=== PATIENT | male | born 1930 | race African-American/Black ===

== ENCOUNTER → 2017-08-20 | Outpatient (CLI) | payer MEDICARE, OTHER ==
[~2017-08-20] VITALS: Ht 160 cm; Wt 69.0 kg
[~2017-08-20] MED LIST: AMLO-511 PO; ASPI-1182 PO; ASPI325T52 PO; ASPI81 PO; ATOR10TA69 PO; AZIL1TAB3 PO; CARV6.2534 PO; CLOP75 PO; DOCU250C16 PO; FAMO20 PO; FAMO40TA7 PO; FERR-89 PO; FEXO-58 PO; FEXO1TAB5 PO; FLUT PO; GABA-531 PO; HYDR25TA PO; IBUP-2070 PO; LISI-662 PO; LUBI24CA2 PO; ROSU10 PO; ROSU5TAB PO; SOLI5 PO; TAMS0.4C32 PO; VALS1TAB79 PO; VITAD1000 PO
[2017-08-20 11:30] VITALS: BP 132/52
== END | disposition home or self-care (01) ==
LOC: SRCNTR 10:53
PROVIDERS: ATTEND Internal Medicine Clinical Cardiac Electrophysiology
DX: Z45.02 Encounter for adjustment and management of automatic implantable cardiac defibrillator (principal); E11.9 Type 2 diabetes mellitus without complications; I11.0 Hypertensive heart disease with heart failure; I50.9 Heart failure, unspecified; E78.5 Hyperlipidemia, unspecified; Z96.0 Presence of urogenital implants; Z79.82 Long term (current) use of aspirin; Z88.0 Allergy status to penicillin; Z95.810 Presence of automatic (implantable) cardiac defibrillator
CPT/HCPCS: G0463

== ENCOUNTER → 2017-09-03 | Outpatient (CLI) | payer MEDICARE, OTHER ==
[~2017-09-03] VITALS: Ht 170.2 cm; Wt 68.0 kg
[2017-09-03 11:01] VITALS: BP 129/44
== END | disposition home or self-care (01) ==
LOC: SRCNTR 10:50
PROVIDERS: ATTEND Internal Medicine Clinical Cardiac Electrophysiology
DX: I11.0 Hypertensive heart disease with heart failure (principal); I50.9 Heart failure, unspecified; E11.9 Type 2 diabetes mellitus without complications; Z79.82 Long term (current) use of aspirin; E78.5 Hyperlipidemia, unspecified; Z88.0 Allergy status to penicillin; Z96.0 Presence of urogenital implants; Z95.810 Presence of automatic (implantable) cardiac defibrillator
CPT/HCPCS: G0463

== ENCOUNTER 2017-09-09 11:17 | Day surgery (SDC) | payer MEDICARE, OTHER ==
[~2017-09-09] VITALS: Ht 163.8 cm; Wt 65.5 kg
[~2017-09-09 11:17] MED LIST changes: -ASPI-1182 PO; -ASPI325T52 PO; -ATOR10TA69 PO; -CARV6.2534 PO; -CLOP75 PO; -DOCU250C16 PO; -FAMO20 PO; -FEXO-58 PO; -FEXO1TAB5 PO; -FLUT PO; -HYDR25TA PO; -LISI-662 PO; -LUBI24CA2 PO; -ROSU5TAB PO; +SODIUM CHLORIDE 0.9% 0 ML IV ONE; +SODIUM CHLORIDE 0.9% 1,000 ML IV ONE; -SOLI5 PO; -VALS1TAB79 PO; -VITAD1000 PO
[2017-09-09] MEDS ORDERED: TAMS0.4C32 PO (11:38)
[2017-09-09] MEDS ORDERED: FAMO20 PO (11:38)
[2017-09-09] MEDS ORDERED: GABA-531 PO ×2 (11:38)
[2017-09-09] MEDS ORDERED: ASPI-1182 PO (11:38)
[2017-09-09] MEDS ORDERED: 0.9% SODIUM CHLORIDE 10 ML VIAL IVP ONE (12:00)
[2017-09-09] MEDS ORDERED: EPHEDrine SULFATE 50 MG/ML VIAL IM ONE (12:00)
[2017-09-09] MEDS ORDERED: MIDAZOLAM HCL 2 MG/2 ML VIAL IVP ONE (12:00)
[2017-09-09] MEDS ORDERED: FentaNYL CITRATE-PF 100 MCG/2 ML VIAL IVP ONE (12:00)
[2017-09-09] MEDS ORDERED: PHENYLEPHRINE HCL 10 MG/ML VIAL IVP ONE (12:00)
[2017-09-09] MEDS ORDERED: LABETALOL HCL 5 MG/ML 20 ML VIAL IVP ONE (12:00)
[2017-09-09 12:12] LABS: BASOPHILS % (AUTO) 0.7 % (0.0-2.0); EOSINOPHILS % (AUTO) 1.6 % (1.0-6.0); HEMATOCRIT 34.8 % (41-53); HEMOGLOBIN 11.8 g/dL (13.5-17.5); LYMPHOCYTES % (AUTO) 29.9 % (22.0-44.0); MEAN CORPUSCULAR HEMOGLOBIN 30.9 pg (26.0-34.0); MEAN CORPUSCULAR HGB CONC 33.9 G/dL (31.0-37.0); MEAN CORPUSCULAR VOLUME 91 fL (80-100); MONOCYTES # (AUTO) 0.3 K/uL (0.1-1.0); MONOCYTES % (AUTO) 5.2 % (2.0-9.0); NEUTROPHILS # (AUTO) 4.2 K/uL (1.8-7.7); NEUTROPHILS % (AUTO) 62.6 % (40.0-70.0); PLATELET COUNT (AUTO) 181 K/uL (150-450); RED BLOOD CELL COUNT(AUTO) 3.82 MIL/uL (4.50-5.90); RED CELL DISTRIBUTION WIDTH 14.1 % (11.5-14.5)
[2017-09-09 12:22] LABS: PROTHROMBIN TIME 10.6 SEC (9.4-11.6)
[2017-09-09 12:43] LABS: CALCIUM, TOTAL 10.1 mg/dL (8.8-10.5); CREATININE 1.62 mg/dL (0.60-1.30); MAGNESIUM 2.1 mg/dL (1.80-2.40); POTASSIUM 3.8 mmol/L (3.5-5.1)
[2017-09-09] MEDS ORDERED: VANCOMYCIN HCL 1 GM/VIAL ONE (13:07)
[2017-09-09] MEDS ORDERED: SODIUM BICARBONATE 50 MEQ/50 ML VIAL ONE (13:08)
[2017-09-09] MEDS ORDERED: 0.9% SODIUM CHLORIDE 10 ML SYRINGE IVP ONE (13:08)
[2017-09-09] MEDS ORDERED: LIDOCAINE HCL/PF 1% 30 ML VIAL ONE (13:08)
[2017-09-09] MEDS ORDERED: IOHEXOL 300 MG/ML 50 ML VIAL ONE (13:08)
[2017-09-09 13:13] VITALS: BP 201/90
[2017-09-09] MEDS ORDERED: VANCOMYCIN HCL 0.5 GM in DEXTROSE 5%-WATER 100 ML IV ONE (13:13)
[2017-09-09] MEDS ORDERED: BUPIVACAINE LIPOSOME/PF 1.3%-13.3MG/ML SUSPENSION 10 ML VIAL INJ ONE (13:15)
[2017-09-09] MEDS ORDERED: LIDOCAINE 1% 30 ML/SOD BICARB 8.4% 4 ML SQ ONE (13:25)
[2017-09-09] MEDS ORDERED: VANCOMYCIN HCL 1 GM/VIAL IRRIG ONE (13:34)
[2017-09-09 13:57] VITALS: BP 155/73
== END 2017-09-09 18:50 | disposition home or self-care (01) ==
LOC: SDS 11:17
PROVIDERS: ATTEND Internal Medicine Clinical Cardiac Electrophysiology
DX: Z45.02 Encounter for adjustment and management of automatic implantable cardiac defibrillator (principal); I11.0 Hypertensive heart disease with heart failure; I50.9 Heart failure, unspecified; G89.29 Other chronic pain; K21.9 Gastro-esophageal reflux disease without esophagitis; E78.00 Pure hypercholesterolemia, unspecified; E11.9 Type 2 diabetes mellitus without complications; F15.90 Other stimulant use, unspecified, uncomplicated; Z87.891 Personal history of nicotine dependence; Z79.82 Long term (current) use of aspirin; Z85.46 Personal history of malignant neoplasm of prostate; Z88.0 Allergy status to penicillin; Z86.73 Personal history of transient ischemic attack (TIA), and cerebral infarction without residual deficits
CPT/HCPCS: 33263; 36415; 80048; 83735; 85025; 85610; 85730; 88300; 93005; C2621; J0690; J2250; J2370; J3010; J3370; J3490 ×4; J7030; 33240; J7060; Q9967

== ENCOUNTER → 2017-09-17 | Outpatient (CLI) | payer MEDICARE ==
[~2017-09-17] VITALS: Ht 160 cm; Wt 68.0 kg
[~2017-09-17] MED LIST changes: +ASPI-1182 PO; -ASPI81 PO; +ATOR10TA69 PO; +FAMO20 PO; -FAMO40TA7 PO; +FEXO-58 PO; +FEXO1TAB5 PO; +FLUT PO; +HYDR25TA PO; +LISI-662 PO; +LUBI24CA2 PO; -SODIUM CHLORIDE 0.9% 0 ML IV ONE; -SODIUM CHLORIDE 0.9% 1,000 ML IV ONE; +SOLI5 PO; +VITAD1000 PO
[2017-09-17 11:07] VITALS: BP 128/38
== END | disposition home or self-care (01) ==
LOC: SRCNTR 11:01
PROVIDERS: ATTEND Internal Medicine Clinical Cardiac Electrophysiology
DX: I11.0 Hypertensive heart disease with heart failure (principal); I50.9 Heart failure, unspecified; E78.5 Hyperlipidemia, unspecified; E11.9 Type 2 diabetes mellitus without complications; Z96.0 Presence of urogenital implants; Z95.810 Presence of automatic (implantable) cardiac defibrillator
CPT/HCPCS: 93288; G0463

== ENCOUNTER → 2017-09-24 | Outpatient (CLI) | payer MEDICARE ==
[~2017-09-24] VITALS: Ht 160 cm; Wt 65.0 kg
[2017-09-24 11:54] VITALS: BP 112/45
== END | disposition home or self-care (01) ==
LOC: SRCNTR 11:41
PROVIDERS: ATTEND Internal Medicine Clinical Cardiac Electrophysiology
DX: Z45.018 Encounter for adjustment and management of other part of cardiac pacemaker (principal); I48.91 Unspecified atrial fibrillation
CPT/HCPCS: 93288; G0463

== ENCOUNTER 2017-09-27 14:11 | Inpatient (IN) | payer MEDICARE ==
[~2017-09-27] VITALS: Ht 170.2 cm; Wt 63.5 kg
[~2017-09-27 14:11] MED LIST changes: -ATOR10TA69 PO; -FEXO-58 PO; -FEXO1TAB5 PO; -FLUT PO; -HYDR25TA PO; -LISI-662 PO; -LUBI24CA2 PO; -SOLI5 PO; -VITAD1000 PO
[2017-09-27 14:32] LABS: GLUCOSE,POINT OF CARE 90 MG/DL (70-110)
[2017-09-27] MEDS ORDERED: FEXO-58 PO (14:58)
[2017-09-27] MEDS ORDERED: SOLI5 PO (14:58)
[2017-09-27] MEDS ORDERED: LUBI24CA2 PO (14:58)
[2017-09-27] MEDS ORDERED: HYDR25TA PO (14:58)
[2017-09-27] MEDS ORDERED: VITAD1000 PO (14:58)
[2017-09-27] MEDS ORDERED: FLUT PO (14:58)
[2017-09-27] MEDS ORDERED: LISI-662 PO (14:58)
[2017-09-27] MEDS ORDERED: FEXO1TAB5 PO (15:38)
[2017-09-27] MEDS ORDERED: ATOR10TA69 PO (15:38)
[2017-09-27 15:47] LABS: BASOPHILS % (AUTO) 0.1 % (0.0-2.0); EOSINOPHILS % (AUTO) 0 % (1.0-6.0); HEMOGLOBIN 10.2 g/dL (13.5-17.5); LYMPHOCYTES # (AUTO) 1.3 K/uL (1.0-4.8); LYMPHOCYTES % (AUTO) 13.6 % (22.0-44.0); MEAN CORPUSCULAR HEMOGLOBIN 30.7 pg (26.0-34.0); MEAN CORPUSCULAR HGB CONC 34.1 G/dL (31.0-37.0); MEAN CORPUSCULAR VOLUME 90 fL (80-100); MONOCYTES # (AUTO) 0.3 K/uL (0.1-1.0); MONOCYTES % (AUTO) 3.6 % (2.0-9.0); NEUTROPHILS # (AUTO) 7.7 K/uL (1.8-7.7); NEUTROPHILS % (AUTO) 82.7 % (40.0-70.0); PLATELET COUNT (AUTO) 178 K/uL (150-450); RED BLOOD CELL COUNT(AUTO) 3.34 MIL/uL (4.50-5.90); RED CELL DISTRIBUTION WIDTH 13.9 % (11.5-14.5); WHITE BLOOD COUNT (AUTO) 9.3 K/uL (4.5-11.0)
[2017-09-27 16:06] LABS: PROTHROMBIN TIME 10.9 SEC (9.4-11.6)
[2017-09-27 16:14] LABS: APPEARANCE,URINE CLOUDY (CLEAR); GLUCOSE, URINE (UA) NEGATIVE (NEGATIVE); KETONES,URINE NEGATIVE (NEGATIVE); LEUKOCYTE ESTERASE ,URINE MODERATE (NEGATIVE); OCCULT BLOOD,URINE LARGE (NEGATIVE); PROTEIN,URINE SEE CONFIRM (NEGATIVE)
[2017-09-27 16:30] LABS: ADD UA MICROSCOPIC YES
[2017-09-27 16:31] LABS: SULFOSALICYLIC ACID,URINE 3+ (Negative)
[2017-09-27 16:36] LABS: ALANINE AMINOTRANSFERASE 13 U/L (12-78); ALBUMIN 3.7 g/dL (3.4-5.0); ANION GAP 13 mmol/L (8-16); ASPARTATE AMINOTRANSFERASE 19 U/L (15-37); BILIRUBIN,TOTAL 0.5 mg/dL (0.1-1.0); CALCIUM, TOTAL 9.5 mg/dL (8.8-10.5); CARBON DIOXIDE 25 mmol/L (22-29); CHLORIDE 96 mmol/L (98-107); CREATINE KINASE MB 1.8 ng/mL (0-5); CREATINE KINASE, TOTAL 177 U/L (39-308); CREATININE 3.51 mg/dL (0.60-1.30); GLOMERULAR FILTR. RATE CALC 20 mL/min (>60); SODIUM SERUM 134 mmol/L (136-145); TOTAL PROTEIN, SERUM 8.5 g/dL (6.4-8.2); UREA NITROGEN, BLOOD 48 mg/dL (7-18)
[2017-09-27 16:40] LABS: POTASSIUM 2.8 mmol/L (3.5-5.1)
[2017-09-27] MEDS ORDERED: LEVOFLOXACIN 500 MG/D5% WATER 100 ML IV ONE (16:45)
[2017-09-27] MEDS ORDERED: POTASSIUM CHLORIDE 10% 40 MEQ/30 ML LIQUID UDCUP PO ONE (16:45)
[2017-09-27 16:54] LABS: B-TYPE NATRIURETIC PEPTIDE 91 pg/mL (0-100)
[2017-09-27] MEDS ORDERED: 0.9% SODIUM CHLORIDE 10 ML SYRINGE IVP PRN (20:00)
[2017-09-27] MEDS ORDERED: SODIUM CHLORIDE 0.9% 1,000 ML IV ONE ×2 (20:00→22:30)
[2017-09-27] MEDS ORDERED: ACETAMINOPHEN 325 MG TABLET PO PRN (20:00)
[2017-09-27 20:45] VITALS: BP 152/84
[2017-09-27] MEDS ORDERED: *CLINICAL-LEVOFLOXACIN IVPB DOSING CLINICAL ONE ×2 (22:30)
[2017-09-27] MEDS ORDERED: MAGNESIUM HYDROXIDE SUSPENSION 30 ML UDCUP PO PRN (22:30)
[2017-09-27] MEDS ORDERED: ONDANSETRON HCL 4 MG/2 ML VIAL IVP PRN (22:30)
[2017-09-27] MEDS ORDERED: HydrALAZINE HCL 20 MG/ML VIAL IVP PRN (22:30)
[2017-09-27] MEDS ORDERED: HYDROCODONE/ACETAMINOPHEN 5-325 MG TABLET PO PRN (22:30)
[2017-09-27] MEDS ORDERED: ZOLPIDEM TARTRATE 5 MG TABLET PO PRN (22:30)
[2017-09-27] MEDS ORDERED: MORPHINE SULFATE 2 MG/ML SYRINGE IVP PRN (22:30)
[2017-09-27] MEDS ORDERED: BISACODYL 10 MG RECTAL RECTAL SUPPOSITORY PR PRN (22:30)
[2017-09-27] MEDS ORDERED: -PHARMACY VACCINE NOTE- MISC ONE ×2 (22:45)
[2017-09-27] MEDS ORDERED: PNEUMOCOCCAL VACCINE POLYVALENT 0.5 ML VIAL [PPSV23] IM ONE (22:45)
[2017-09-27] MEDS: HEPARIN SODIUM,PORCINE 5,000 UNITS/ML VIAL SQ SCH (23:37)
[2017-09-27 23:58] VITALS: BP 109/61
[2017-09-28 04:42] VITALS: BP 138/59
[2017-09-28 07:10] LABS: ALBUMIN 3.1 g/dL (3.4-5.0); BILIRUBIN,TOTAL 0.5 mg/dL (0.1-1.0); CREATININE 2.32 mg/dL (0.60-1.30); POTASSIUM 3.1 mmol/L (3.5-5.1); THYROID STIMULATING HORMONE 1.77 uIU/mL (0.36-3.74); TOTAL PROTEIN, SERUM 7.3 g/dL (6.4-8.2)
[2017-09-28 07:28] VITALS: BP 130/60
[2017-09-28 08:07] LABS: BASOPHILS # (AUTO) 0.04 K/uL (0.00-0.20); BASOPHILS % (AUTO) 0.6 % (0.0-2.0); EOSINOPHILS # (AUTO) 0.04 K/uL (0.00-0.70); EOSINOPHILS % (AUTO) 0.58 % (1.0-6.0); LYMPHOCYTES # (AUTO) 1.7 K/uL (1.0-4.8); MEAN CORPUSCULAR HEMOGLOBIN 30.5 pg (26.0-34.0); MEAN CORPUSCULAR HGB CONC 33.4 G/dL (31.0-37.0); MEAN CORPUSCULAR VOLUME 91 fL (80-100); MONOCYTES # (AUTO) 0.5 K/uL (0.1-1.0); MONOCYTES % (AUTO) 7.7 % (2.0-9.0); NEUTROPHILS # (AUTO) 4.6 K/uL (1.8-7.7); NEUTROPHILS % (AUTO) 66.1 % (40.0-70.0); PLATELET COUNT (AUTO) 161 K/uL (150-450); RED BLOOD CELL COUNT(AUTO) 3.29 MIL/uL (4.50-5.90); RED CELL DISTRIBUTION WIDTH 13.9 % (11.5-14.5); WHITE BLOOD COUNT (AUTO) 6.9 K/uL (4.5-11.0)
[2017-09-28] MEDS: ROSUVASTATIN CALCIUM 10 MG TABLET PO SCH (08:31)
[2017-09-28] MEDS: LUBIPROSTONE 24 MCG CAPSULE PO SCH ×2 (08:31→20:41)
[2017-09-28] MEDS: SOLIFENACIN SUCCINATE 5 MG TABLET PO SCH (08:31)
[2017-09-28] MEDS: FERROUS SULFATE 325 MG EC TABLET PO SCH ×2 (08:32→18:17)
[2017-09-28] MEDS: DOCUSATE SODIUM 100 MG CAPSULE PO SCH ×2 (08:32→20:41)
[2017-09-28] MEDS: FEXOFENADINE HCL 60 MG TABLET PO SCH (08:32)
[2017-09-28] MEDS: TAMSULOSIN HCL 0.4 MG CAPSULE PO SCH (08:32)
[2017-09-28] MEDS: GABAPENTIN 300 MG CAPSULE PO SCH ×2 (08:33→20:41)
[2017-09-28] MEDS: AmLODIPine BESYLATE 5 MG TABLET PO SCH (08:33)
[2017-09-28] MEDS: ASPIRIN 81 MG EC TABLET PO SCH (08:33)
[2017-09-28] MEDS: PANTOPRAZOLE SODIUM 40 MG DR TABLET PO SCH (08:33)
[2017-09-28] MEDS: CHOLECALCIFEROL (VIT D3) 1,000 UNITS TABLET PO SCH (08:34)
[2017-09-28] MEDS: HEPARIN SODIUM,PORCINE 5,000 UNITS/ML VIAL SQ SCH ×3 (08:34→23:47)
[2017-09-28] MEDS: LEVOFLOXACIN 250 MG/D5% WATER 50 ML IV SCH (09:16)
[2017-09-28] MEDS ORDERED: POTASSIUM CHLORIDE 10% 40 MEQ/30 ML LIQUID UDCUP PO ONE (11:15)
[2017-09-28 11:29] VITALS: BP 113/41
[2017-09-28] MEDS: POTASSIUM CHLORIDE 10 MEQ in SODIUM CHLORIDE 0.9% 1,000 ML IV SCH (12:17)
[2017-09-28 16:13] VITALS: BP 94/50
[2017-09-28] MEDS: FLUTAMIDE 125 MG PO SCH ×2 (18:22→23:14)
[2017-09-28 19:37] VITALS: BP 98/50
[2017-09-28 23:52] VITALS: BP 111/57
[2017-09-29] MEDS: POTASSIUM CHLORIDE 10 MEQ in SODIUM CHLORIDE 0.9% 1,000 ML IV SCH (04:52)
[2017-09-29 05:03] VITALS: BP 123/60
[2017-09-29 06:15] LABS: HEMATOCRIT 27.7 % (41-53); HEMOGLOBIN 9.5 g/dL (13.5-17.5); LYMPHOCYTES # (AUTO) 1.9 K/uL (1.0-4.8); MEAN CORPUSCULAR HEMOGLOBIN 31.4 pg (26.0-34.0); MEAN CORPUSCULAR HGB CONC 34.3 G/dL (31.0-37.0); MEAN CORPUSCULAR VOLUME 92 fL (80-100); MONOCYTES # (AUTO) 0.4 K/uL (0.1-1.0); MONOCYTES % (AUTO) 4.9 % (2.0-9.0); NEUTROPHILS # (AUTO) 6.3 K/uL (1.8-7.7); NEUTROPHILS % (AUTO) 72.1 % (40.0-70.0); PLATELET COUNT (AUTO) 164 K/uL (150-450); RED BLOOD CELL COUNT(AUTO) 3.03 MIL/uL (4.50-5.90); RED CELL DISTRIBUTION WIDTH 13.9 % (11.5-14.5); WHITE BLOOD COUNT (AUTO) 8.7 K/uL (4.5-11.0)
[2017-09-29 06:36] LABS: CALCIUM, TOTAL 8.8 mg/dL (8.8-10.5); CREATININE 2.03 mg/dL (0.60-1.30); POTASSIUM 3.4 mmol/L (3.5-5.1)
[2017-09-29 07:26] VITALS: BP 105/54
[2017-09-29] MEDS: FERROUS SULFATE 325 MG EC TABLET PO SCH ×2 (08:10→17:45)
[2017-09-29] MEDS: TAMSULOSIN HCL 0.4 MG CAPSULE PO SCH (08:11)
[2017-09-29] MEDS: ASPIRIN 81 MG EC TABLET PO SCH (08:11)
[2017-09-29] MEDS: AmLODIPine BESYLATE 5 MG TABLET PO SCH (08:11)
[2017-09-29] MEDS: PANTOPRAZOLE SODIUM 40 MG DR TABLET PO SCH (08:11)
[2017-09-29] MEDS: GABAPENTIN 300 MG CAPSULE PO SCH ×2 (08:11→20:37)
[2017-09-29] MEDS: DOCUSATE SODIUM 100 MG CAPSULE PO SCH ×2 (08:11→20:38)
[2017-09-29] MEDS: HEPARIN SODIUM,PORCINE 5,000 UNITS/ML VIAL SQ SCH ×2 (08:12→16:41)
[2017-09-29] MEDS: LEVOFLOXACIN 250 MG/D5% WATER 50 ML IV SCH (08:12)
[2017-09-29] MEDS: FLUTAMIDE 125 MG PO SCH ×3 (08:12→20:38)
[2017-09-29] MEDS ORDERED: LEVOFLOXACIN 500 MG/D5% WATER 100 ML IV SCH (09:00)
[2017-09-29] MEDS: FEXOFENADINE HCL 60 MG TABLET PO SCH (09:41)
[2017-09-29] MEDS: ROSUVASTATIN CALCIUM 10 MG TABLET PO SCH (09:42)
[2017-09-29] MEDS: LUBIPROSTONE 24 MCG CAPSULE PO SCH ×2 (09:42→20:37)
[2017-09-29] MEDS: CHOLECALCIFEROL (VIT D3) 1,000 UNITS TABLET PO SCH (09:42)
[2017-09-29] MEDS: SOLIFENACIN SUCCINATE 5 MG TABLET PO SCH (09:42)
[2017-09-29 11:23] VITALS: BP 101/50
[2017-09-29 12:23] VITALS: BP 106/54
[2017-09-29] MEDS ORDERED: SODIUM CHLORIDE 0.9% 100 ML ONE (12:36)
[2017-09-29] MEDS ORDERED: POTASSIUM CHLORIDE 10% 40 MEQ/30 ML LIQUID UDCUP PO ONE (12:45)
[2017-09-29 16:29] VITALS: BP 96/52
[2017-09-29] MEDS: ACETAMINOPHEN 325 MG TABLET PO PRN (16:41)
[2017-09-29 20:20] VITALS: BP 97/46
[2017-09-30] MEDS: HEPARIN SODIUM,PORCINE 5,000 UNITS/ML VIAL SQ SCH ×3 (00:27→17:11)
[2017-09-30 00:32] VITALS: BP 96/49
[2017-09-30 05:10] VITALS: BP 108/52
[2017-09-30 06:28] LABS: BASOPHILS # (AUTO) 0.04 K/uL (0.00-0.20); BASOPHILS % (AUTO) 0.5 % (0.0-2.0); EOSINOPHILS # (AUTO) 0.09 K/uL (0.00-0.70); EOSINOPHILS % (AUTO) 1.18 % (1.0-6.0); HEMATOCRIT 27.6 % (41-53); HEMOGLOBIN 9.1 g/dL (13.5-17.5); LYMPHOCYTES % (AUTO) 24.8 % (22.0-44.0); MEAN CORPUSCULAR HEMOGLOBIN 30.6 pg (26.0-34.0); MEAN CORPUSCULAR HGB CONC 32.8 G/dL (31.0-37.0); MEAN CORPUSCULAR VOLUME 93 fL (80-100); MONOCYTES # (AUTO) 0.6 K/uL (0.1-1.0); MONOCYTES % (AUTO) 7.7 % (2.0-9.0); NEUTROPHILS # (AUTO) 5.3 K/uL (1.8-7.7); NEUTROPHILS % (AUTO) 65.8 % (40.0-70.0); PLATELET COUNT (AUTO) 151 K/uL (150-450); RED BLOOD CELL COUNT(AUTO) 2.96 MIL/uL (4.50-5.90); RED CELL DISTRIBUTION WIDTH 13.7 % (11.5-14.5)
[2017-09-30] MEDS: ACETAMINOPHEN 325 MG TABLET PO PRN (06:39)
[2017-09-30 06:48] LABS: CALCIUM, TOTAL 8.8 mg/dL (8.8-10.5); CREATININE 1.88 mg/dL (0.60-1.30); POTASSIUM 3.6 mmol/L (3.5-5.1)
[2017-09-30 07:23] VITALS: BP 120/53
[2017-09-30] MEDS: ROSUVASTATIN CALCIUM 10 MG TABLET PO SCH (08:38)
[2017-09-30] MEDS: PANTOPRAZOLE SODIUM 40 MG DR TABLET PO SCH (08:39)
[2017-09-30] MEDS: LEVOFLOXACIN 250 MG/D5% WATER 50 ML IV SCH (08:39)
[2017-09-30] MEDS: TAMSULOSIN HCL 0.4 MG CAPSULE PO SCH (08:39)
[2017-09-30] MEDS: AmLODIPine BESYLATE 5 MG TABLET PO SCH (08:39)
[2017-09-30] MEDS: GABAPENTIN 300 MG CAPSULE PO SCH ×2 (08:39→20:25)
[2017-09-30] MEDS: CHOLECALCIFEROL (VIT D3) 1,000 UNITS TABLET PO SCH (08:40)
[2017-09-30] MEDS: DOCUSATE SODIUM 100 MG CAPSULE PO SCH ×2 (08:40→20:25)
[2017-09-30] MEDS: LUBIPROSTONE 24 MCG CAPSULE PO SCH ×2 (08:40→20:25)
[2017-09-30] MEDS: SOLIFENACIN SUCCINATE 5 MG TABLET PO SCH (08:40)
[2017-09-30] MEDS: FEXOFENADINE HCL 60 MG TABLET PO SCH (08:40)
[2017-09-30] MEDS: ASPIRIN 81 MG EC TABLET PO SCH (08:41)
[2017-09-30] MEDS: FERROUS SULFATE 325 MG EC TABLET PO SCH ×2 (08:41→17:12)
[2017-09-30 11:11] VITALS: BP 96/44
[2017-09-30] MEDS ORDERED: POTASSIUM CHLORIDE 10% 40 MEQ/30 ML LIQUID UDCUP PO ONE (11:30)
[2017-09-30] MEDS: FLUTAMIDE 125 MG PO SCH ×3 (11:41→20:26)
[2017-09-30 15:20] VITALS: BP 100/50
[2017-09-30 16:58] LABS: GLUCOSE,POINT OF CARE 89 MG/DL (70-110)
[2017-09-30 16:58] LABS: GLUCOSE,POINT OF CARE 91 MG/DL (70-110)
[2017-09-30] MEDS: SODIUM CHLORIDE 0.45% 1,000 ML IV SCH (17:10)
[2017-09-30 20:16] VITALS: BP 105/53
[2017-10-01] MEDS: HEPARIN SODIUM,PORCINE 5,000 UNITS/ML VIAL SQ SCH ×3 (00:25→16:57)
[2017-10-01 00:57] VITALS: BP 117/62
[2017-10-01] MEDS: SODIUM CHLORIDE 0.45% 1,000 ML IV SCH ×2 (04:21→16:58)
[2017-10-01 05:17] VITALS: BP 103/52
[2017-10-01 07:38] VITALS: BP 128/65
[2017-10-01] MEDS: DOCUSATE SODIUM 100 MG CAPSULE PO SCH (08:30)
[2017-10-01] MEDS: GABAPENTIN 300 MG CAPSULE PO SCH (08:30)
[2017-10-01] MEDS: PANTOPRAZOLE SODIUM 40 MG DR TABLET PO SCH (08:30)
[2017-10-01] MEDS: TAMSULOSIN HCL 0.4 MG CAPSULE PO SCH (08:30)
[2017-10-01] MEDS: AmLODIPine BESYLATE 5 MG TABLET PO SCH (08:31)
[2017-10-01] MEDS: CHOLECALCIFEROL (VIT D3) 1,000 UNITS TABLET PO SCH (08:32)
[2017-10-01] MEDS: FERROUS SULFATE 325 MG EC TABLET PO SCH ×2 (08:32→16:57)
[2017-10-01] MEDS: ROSUVASTATIN CALCIUM 10 MG TABLET PO SCH (08:33)
[2017-10-01] MEDS: FEXOFENADINE HCL 60 MG TABLET PO SCH (08:33)
[2017-10-01] MEDS: LUBIPROSTONE 24 MCG CAPSULE PO SCH (08:33)
[2017-10-01] MEDS: FLUTAMIDE 125 MG PO SCH ×2 (08:33→16:58)
[2017-10-01] MEDS: SOLIFENACIN SUCCINATE 5 MG TABLET PO SCH (08:34)
[2017-10-01] MEDS: LEVOFLOXACIN 250 MG/D5% WATER 50 ML IV SCH (08:35)
[2017-10-01] MEDS: ASPIRIN 81 MG EC TABLET PO SCH (10:07)
[2017-10-01 11:21] VITALS: BP 95/50
[2017-10-01 15:22] VITALS: BP 106/53
== END 2017-10-01 19:20 | DRG 698 ==
LOC: EMS 14:13 → 5S 18:36
PROVIDERS: ADMIT Internal Medicine; ATTEND Internal Medicine
DX: T83.091A Other mechanical complication of indwelling urethral catheter, initial encounter (principal); N17.0 Acute kidney failure with tubular necrosis; E11.22 Type 2 diabetes mellitus with diabetic chronic kidney disease; E11.51 Type 2 diabetes mellitus with diabetic peripheral angiopathy without gangrene; I13.0 Hypertensive heart and chronic kidney disease with heart failure and stage 1 through stage 4 chronic kidney disease, or unspecified chronic kidney disease; I49.5 Sick sinus syndrome; I50.9 Heart failure, unspecified; N39.0 Urinary tract infection, site not specified; E86.0 Dehydration; C61 Malignant neoplasm of prostate; K58.9 Irritable bowel syndrome, unspecified; E87.6 Hypokalemia; E78.5 Hyperlipidemia, unspecified; N18.9 Chronic kidney disease, unspecified; Z60.2 Problems related to living alone; D64.9 Anemia, unspecified; K59.00 Constipation, unspecified; N40.0 Benign prostatic hyperplasia without lower urinary tract symptoms; I25.10 Atherosclerotic heart disease of native coronary artery without angina pectoris; Z95.5 Presence of coronary angioplasty implant and graft; Z95.810 Presence of automatic (implantable) cardiac defibrillator; Z88.0 Allergy status to penicillin; Z79.899 Other long term (current) drug therapy; Z79.82 Long term (current) use of aspirin; Y84.6 Urinary catheterization as the cause of abnormal reaction of the patient, or of later complication, without mention of misadventure at the time of the procedure; Y92.89 Other specified places as the place of occurrence of the external cause
CPT/HCPCS: 76770; 82570; 82962; 83540; 83550; 83605; 84156; 84300; 84443; 87040; 87086; 90471; 93005; 96365; 96366; 97110; 97116; 97162; 97166; 97530; 99285; J1644; J1956; J3480; J7030; J7050